=== PATIENT | male | born 1985 | race Caucasian/White ===

== ENCOUNTER 2017-09-03 22:47 | Emergency (ER) | payer SELFPAY | END 2017-09-04 00:10 | disposition home or self-care (01) | LOC: EDH 22:47 | DX: S89.91XA Unspecified injury of right lower leg, initial encounter (principal); Z72.0 Tobacco use; Z98.890 Other specified postprocedural states | CPT/HCPCS: 73562 ==

== ENCOUNTER 2022-02-13 01:25 | Emergency (ER) | payer OTHER ==
[~2022-02-13] VITALS: Ht 177.8 cm; Wt 105.7 kg
[2022-02-13 01:26] VITALS: BP 167/128
[2022-02-13] MEDS ORDERED: LIDO113G3 TP (02:35)
[2022-02-13] MEDS ORDERED: HYDR25SU38 RC (02:35)
[2022-02-13] MEDS ORDERED: DOCU100C33 PO (02:35)
== END 2022-02-13 02:52 | disposition home or self-care (01) ==
LOC: EDH 01:25
DX: K64.4 Residual hemorrhoidal skin tags (principal); K64.5 Perianal venous thrombosis; I10 Essential (primary) hypertension
CPT/HCPCS: 99282

== ENCOUNTER 2023-07-06 19:37 | Inpatient (IN) | payer OTHER ==
[~2023-07-06] VITALS: Ht 177.8 cm; Wt 100.6 kg
[~2023-07-06 19:37] MED LIST: DOCU100C33 PO; HYDR25SU38 RC; LIDO113G3 TP
[2023-07-06 20:06] LABS: BASOPHILS # (AUTO) 0.07 K/uL (0.00-0.20); BASOPHILS % (AUTO) 0.8 % (0.0-5.0); EOSINOPHILS # (AUTO) 0.26 K/uL (0.00-0.70); EOSINOPHILS % (AUTO) 2.8 % (0.0-8.0); HEMATOCRIT 51.5 % (42-54); IMMATURE GRANULOCYTE ABSOLUTE 0.03 K/uL (0-1); LYMPHOCYTES # (AUTO) 2.4 K/uL (1.0-4.8); LYMPHOCYTES % (AUTO) 25.7 % (21.0-51.0); MEAN CORPUSCULAR HEMOGLOBIN 30.8 pg (27.0-33.0); MEAN CORPUSCULAR HGB CONC 34.4 g/dL (32.0-36.0); MEAN CORPUSCULAR VOLUME 89.7 fL (79-99); MONOCYTES # (AUTO) 0.6 K/uL (0.1-1.0); MONOCYTES % (AUTO) 6.5 % (3.0-13.0); NEUTROPHILS # (AUTO) 5.9 K/uL (1.8-7.7); NEUTROPHILS % (AUTO) 63.9 % (40.0-77.0); PLATELET COUNT (AUTO) 286 K/uL (130-400); RED BLOOD CELL COUNT(AUTO) 5.74 MIL/uL (4.50-6.20); RED CELL DISTRIBUTION WIDTH 11.9 % (11.0-15.5); WHITE BLOOD COUNT (AUTO) 9.2 K/uL (4.8-10.8)
[2023-07-06 20:24] LABS: CREATININE 1.2 mg/dL (0.5-1.5); POTASSIUM 3.4 mmol/L (3.5-5.1)
[2023-07-06 20:35] LABS: ALBUMIN 3.8 g/dL (3.5-5.0); BILIRUBIN,TOTAL 0.6 mg/dL (0.2-1.0); TOTAL PROTEIN, SERUM 7.7 g/dL (6.0-8.3)
[2023-07-06] MEDS ORDERED: 0.9%NACL 1000ML 1,000 ML IV ONE (20:43)
[2023-07-06] MEDS: ERYTHROMYCIN BASE 0.5% OPHTH OINT 1 GM TUBE OU SCH (20:48)
[2023-07-06] MEDS ORDERED: 0.9%NACL 1000ML 1,000 ML IV STA (20:49)
[2023-07-06] MEDS ORDERED: HYDRALAZINE 20MG/ML VIAL IV ONE ×2 (21:00→22:00)
[2023-07-06] MEDS ORDERED: ASPIRIN 325MG TAB PO ONE (21:00)
[2023-07-06] MEDS ORDERED: POTASSIUM BICARB/CIT AC 25 MEQ TABLET.EFF ONE (21:18)
[2023-07-06 21:21] LABS: AMPHET/METH SCREEN,URINE NEGATIVE (NEGATIVE); BARBITURATE SCREEN, URINE NEGATIVE (NEGATIVE); BENZODIAZEPINES SCREEN,URINE NEGATIVE (NEGATIVE); CANNABINOID SCREEN,URINE POSITIVE (NEGATIVE); COCAINE SCREEN,URINE NEGATIVE (NEGATIVE); OPIATE SCREEN,URINE NEGATIVE (NEGATIVE); PHENCYCLIDINE SCREEN,URINE NEGATIVE (NEGATIVE)
[2023-07-06] MEDS ORDERED: POTASSIUM BICARB/CIT AC 25 MEQ TABLET.EFF PO ONE (21:30)
[2023-07-06] MEDS ORDERED: MORPHINE 4 MG SYG IV PRN (23:30)
[2023-07-06] MEDS ORDERED: CLOPIDOGREL 300MG TAB PO ONE (23:30)
[2023-07-06] MEDS ORDERED: MORPHINE 2 MG SYG IV PRN (23:30)
[2023-07-06] MEDS ORDERED: POTASSIUM CHLORIDE 20MEQ/100ML 100 ML IV PRN (23:30)
[2023-07-06] MEDS ORDERED: ACETAMINOPHEN 325 MG TAB PO PRN ×2 (23:30)
[2023-07-06] MEDS ORDERED: ONDANSETRON 4MG INJ IV PRN (23:30)
[2023-07-06] MEDS ORDERED: NITROGLYCERIN 50MG/D5W 250ML 250 BOT IV SCH (23:30)
[2023-07-06] MEDS ORDERED: MAGNESIUM 2GM PREMIX 50ML 50 ML IV PRN (23:30)
[2023-07-06 23:43] LABS: RAPID GROUP A STREP negative (NEGATIVE)
[2023-07-06 23:49] LABS: BASOPHILS % (AUTO) 0.9 % (0.0-5.0); EOSINOPHILS # (AUTO) 0.28 K/uL (0.00-0.70); EOSINOPHILS % (AUTO) 2.4 % (0.0-8.0); HEMATOCRIT 50.3 % (42-54); IMMATURE GRANULOCYTE ABSOLUTE 0.04 K/uL (0-1); LYMPHOCYTES # (AUTO) 3.3 K/uL (1.0-4.8); LYMPHOCYTES % (AUTO) 29.2 % (21.0-51.0); MEAN CORPUSCULAR HEMOGLOBIN 30.8 pg (27.0-33.0); MEAN CORPUSCULAR HGB CONC 34.2 g/dL (32.0-36.0); MONOCYTES % (AUTO) 8.4 % (3.0-13.0); NEUTROPHILS # (AUTO) 6.7 K/uL (1.8-7.7); NEUTROPHILS % (AUTO) 58.8 % (40.0-77.0); PLATELET COUNT (AUTO) 274 K/uL (130-400); RED BLOOD CELL COUNT(AUTO) 5.59 MIL/uL (4.50-6.20); RED CELL DISTRIBUTION WIDTH 11.9 % (11.0-15.5); WHITE BLOOD COUNT (AUTO) 11.4 K/uL (4.8-10.8)
[2023-07-06 23:53] LABS: COVID19 (SARS ANTIGEN RAPID) PRESUMPTIVE NEGATIVE (NEGATIVE); INFLUENZA TYPE A Negative For Type A (NEGATIVE); INFLUENZA TYPE B Negative For Type B (NEGATIVE)
[2023-07-06] MEDS: HEPARIN 25,000 UNITS/250ML D5W 250 ML IV SCH (23:58)
[2023-07-07] VITALS (63 sets, daily range): BP systolic 125–172; BP diastolic 55–115; PULSE 63–94; RESP 12–53; O2SAT 95–98
[2023-07-07 00:01] LABS: INR < 0.93 (0.85-1.15); PROTHROMBIN TIME 10.8 SEC (9.6-11.6)
[2023-07-07 00:03] LABS: PARTIAL THROMBOPLASTIN TIME 30.2 SEC (26.3-35.5)
[2023-07-07] MEDS ORDERED: HEPARIN 5,000 UNIT VIAL SQ PRN (00:30)
[2023-07-07 00:33] LABS: B-TYPE NATRIURETIC PEPTIDE 104 pg/mL (0-100)
[2023-07-07] MEDS: LACTATED RINGERS 1000ML 1,000 ML IV SCH ×2 (01:40→15:04)
[2023-07-07 03:38] LABS: BASOPHILS # (AUTO) 0.09 K/uL (0.00-0.20); BASOPHILS % (AUTO) 0.8 % (0.0-5.0); EOSINOPHILS % (AUTO) 0.9 % (0.0-8.0); HEMATOCRIT 49.1 % (42-54); IMMATURE GRANULOCYTE ABSOLUTE 0.03 K/uL (0-1); LYMPHOCYTES # (AUTO) 2.5 K/uL (1.0-4.8); LYMPHOCYTES % (AUTO) 22.3 % (21.0-51.0); MEAN CORPUSCULAR HEMOGLOBIN 30.4 pg (27.0-33.0); MEAN CORPUSCULAR HGB CONC 34.4 g/dL (32.0-36.0); MEAN CORPUSCULAR VOLUME 88.3 fL (79-99); MONOCYTES # (AUTO) 0.8 K/uL (0.1-1.0); MONOCYTES % (AUTO) 6.8 % (3.0-13.0); NEUTROPHILS # (AUTO) 7.6 K/uL (1.8-7.7); NEUTROPHILS % (AUTO) 68.9 % (40.0-77.0); PLATELET COUNT (AUTO) 279 K/uL (130-400); RED BLOOD CELL COUNT(AUTO) 5.56 MIL/uL (4.50-6.20); RED CELL DISTRIBUTION WIDTH 11.9 % (11.0-15.5)
[2023-07-07 03:50] LABS: INR 0.94 (0.85-1.15); PROTHROMBIN TIME 10.9 SEC (9.6-11.6)
[2023-07-07 03:51] LABS: PARTIAL THROMBOPLASTIN TIME 37.2 SEC (26.3-35.5)
[2023-07-07 03:54] LABS: PHOSPHORUS 2.4 mg/dL (2.5-4.9); POTASSIUM 3.4 mmol/L (3.5-5.1)
[2023-07-07] MEDS: HEPARIN 25,000 UNITS/250ML D5W 250 ML IV SCH ×3 (06:38→18:51)
[2023-07-07 06:58] LABS: INR 0.94 (0.85-1.15)
[2023-07-07 06:59] LABS: PARTIAL THROMBOPLASTIN TIME 51.9 SEC (26.3-35.5)
[2023-07-07] MEDS: ASPIRIN 81MG CHEW TAB PO SCH (09:13)
[2023-07-07] MEDS: CLOPIDOGREL 75MG TAB PO SCH (09:14)
[2023-07-07] MEDS: FAMOTIDINE 20MG TAB PO SCH ×2 (09:14→20:31)
[2023-07-07] MEDS ORDERED: LISINOPRIL 20 MG TABLET PO SCH (10:30)
[2023-07-07] MEDS ORDERED: HYDRALAZINE 20MG/ML VIAL IM ONE (10:30)
[2023-07-07] MEDS ORDERED: HYDRALAZINE 20MG/ML VIAL IV ONE (11:00)
[2023-07-07 12:18] LABS: INR 0.95 (0.85-1.15); PROTHROMBIN TIME 11.1 SEC (9.6-11.6)
[2023-07-07 12:19] LABS: PARTIAL THROMBOPLASTIN TIME 53.5 SEC (26.3-35.5)
[2023-07-07] MEDS ORDERED: LISINOPRIL 20 MG TABLET PO ONE (12:30)
[2023-07-07] MEDS ORDERED: POTASSIUM CHLORIDE 20MEQ/100ML 100 ML IV PRN (15:00)
[2023-07-07] MEDS ORDERED: KCL 20 MEQ ERTAB PO PRN (15:00)
[2023-07-07] MEDS ORDERED: POTASSIUM CHLORIDE 10% ELIXIR 20 MEQ/15 ML UDCUP PO PRN (15:00)
[2023-07-07] MEDS: POTASSIUM CHLORIDE 10% ELIXIR 20 MEQ/15 ML UDCUP PO PRN ×2 (15:04→16:55)
[2023-07-07] MEDS: ERYTHROMYCIN BASE 0.5% OPHTH OINT 1 GM TUBE OU SCH (21:39)
[2023-07-08 00:05] VITALS: BP 134/97; PULSE 74; RESP 20
[2023-07-08] MEDS: HEPARIN 25,000 UNITS/250ML D5W 250 ML IV SCH ×2 (00:30→06:03)
[2023-07-08 04:00] VITALS: BP 126/76; PULSE 61; RESP 20
[2023-07-08] MEDS: LACTATED RINGERS 1000ML 1,000 ML IV SCH (04:10)
[2023-07-08 07:12] VITALS: BP 142/97; PULSE 64; RESP 18
[2023-07-08 07:17] LABS: BASOPHILS # (AUTO) 0.09 K/uL (0.00-0.20); EOSINOPHILS # (AUTO) 0.17 K/uL (0.00-0.70); EOSINOPHILS % (AUTO) 1.9 % (0.0-8.0); HEMATOCRIT 52.1 % (42-54); IMMATURE GRANULOCYTE ABSOLUTE 0.03 K/uL (0-1); LYMPHOCYTES # (AUTO) 2.9 K/uL (1.0-4.8); MEAN CORPUSCULAR HEMOGLOBIN 30.8 pg (27.0-33.0); MEAN CORPUSCULAR HGB CONC 33.4 g/dL (32.0-36.0); MEAN CORPUSCULAR VOLUME 92.2 fL (79-99); MONOCYTES # (AUTO) 0.8 K/uL (0.1-1.0); MONOCYTES % (AUTO) 9.3 % (3.0-13.0); NEUTROPHILS % (AUTO) 55.5 % (40.0-77.0); PLATELET COUNT (AUTO) 265 K/uL (130-400); RED BLOOD CELL COUNT(AUTO) 5.65 MIL/uL (4.50-6.20); RED CELL DISTRIBUTION WIDTH 12.1 % (11.0-15.5)
[2023-07-08 07:39] LABS: ALBUMIN 3.3 g/dL (3.5-5.0); BILIRUBIN,TOTAL 1.2 mg/dL (0.2-1.0); TOTAL PROTEIN, SERUM 6.8 g/dL (6.0-8.3)
[2023-07-08 08:00] VITALS: O2SAT 97
[2023-07-08] MEDS: CLOPIDOGREL 75MG TAB PO SCH (08:57)
[2023-07-08] MEDS: FAMOTIDINE 20MG TAB PO SCH (08:57)
[2023-07-08] MEDS: ASPIRIN 81MG CHEW TAB PO SCH (08:58)
[2023-07-08] MEDS ORDERED: ENOXAPARIN SODIUM 40 MG/0.4 ML SYRINGE SQ SCH (09:00)
[2023-07-08] MEDS ORDERED: LISINOPRIL 40 MG TABLET PO SCH (09:00)
[2023-07-08] MEDS ORDERED: REGADENOSON 0.4 MG/5 ML PF SYG IVP SCH (11:00)
[2023-07-08 13:45] LABS: INR 0.98 (0.85-1.15); PROTHROMBIN TIME 11.4 SEC (9.6-11.6)
[2023-07-08 13:46] LABS: PARTIAL THROMBOPLASTIN TIME 58.8 SEC (26.3-35.5)
[2023-07-08 15:46] VITALS: BP 141/79; PULSE 72; RESP 18
[2023-07-08] MEDS ORDERED: ASPI-1197 PO ×2 (17:50→17:57)
[2023-07-08] MEDS ORDERED: LISI40TA9 PO (17:57)
[2023-07-08] MEDS ORDERED: CLOP-31 PO (17:58)
== END 2023-07-08 18:40 | disposition home or self-care (01) | DRG 305 ==
LOC: EDH 19:37 → EDHIP 19:38 → 2CH 07-07 02:47 → 2DH 07-07 17:33
PROVIDERS: ADMIT Internal Medicine; ATTEND Internal Medicine
PROC: 4A02XM4 Measurement of Cardiac Total Activity, External Approach (ICD-10-PCS; principal; 2023-07-08)
PROC: 3E073KZ Introduction of Other Diagnostic Substance into Coronary Artery, Percutaneous Approach (ICD-10-PCS; 2023-07-08)
DX: I16.1 Hypertensive emergency (principal); E87.6 Hypokalemia; I10 Essential (primary) hypertension; I44.0 Atrioventricular block, first degree; Z20.822 Contact with and (suspected) exposure to COVID-19; Z51.5 Encounter for palliative care; Z59.7 Insufficient social insurance and welfare support; Z75.3 Unavailability and inaccessibility of health-care facilities; Z79.02 Long term (current) use of antithrombotics/antiplatelets; Z79.82 Long term (current) use of aspirin; Z79.899 Other long term (current) drug therapy; Z91.199 Patient's noncompliance with other medical treatment and regimen due to unspecified reason
CPT/HCPCS: 36415; 70450; 71045; 78452; 80048; 80053; 80305; 82550; 83735; 83874; 83880; 84100; 84484; 85025; 85610; 85730; 86850; 86900; 86901; 87426; 87804; 87880; 93005; 93017; 93306; 96374; A9500; G0378; J0360; J1644; J1650; J2405; J2785; J3480; J7030

== ENCOUNTER 2023-09-16 15:44 | Inpatient (IN) | payer OTHER ==
[~2023-09-16] VITALS: Ht 177.8 cm; Wt 102.6 kg
[~2023-09-16 15:44] MED LIST changes: +ASPI-1197 PO; +CLOP-31 PO; -DOCU100C33 PO; -HYDR25SU38 RC; -LIDO113G3 TP; +LISI40TA9 PO
[2023-09-16 16:59] LABS: APPEARANCE,URINE CLEAR (CLEAR); BILIRUBIN,URINE NEGATIVE (NEGATIVE); COLOR,URINE LIGHT-YELLOW (YELLOW); GLUCOSE, URINE (UA) NEGATIVE (NEGATIVE); KETONES,URINE NEGATIVE (NEGATIVE); LEUKOCYTE ESTERASE ,URINE NEGATIVE Leu/uL (NEGATIVE); NITRATE,URINE NEGATIVE (NEGATIVE); PH,URINE 5.5 (5.0-8.0); PROTEIN,URINE NEGATIVE (NEGATIVE); UROBILINOGEN,URINE 0.2 mg/dL (0.2-1.0)
[2023-09-16 16:59] LABS: POTASSIUM 3.9 mmol/L (3.5-5.1)
[2023-09-16 17:01] LABS: INR 0.94 (0.85-1.15); PROTHROMBIN TIME 10.9 SEC (9.6-11.6)
[2023-09-16 17:02] LABS: PARTIAL THROMBOPLASTIN TIME 23.5 SEC (26.3-35.5)
[2023-09-16 17:06] LABS: ADD UA MICROSCOPIC YES
[2023-09-16 17:06] LABS: ALBUMIN 3.4 g/dL (3.5-5.0); BILIRUBIN,TOTAL 0.2 mg/dL (0.2-1.0); TOTAL PROTEIN, SERUM 6.3 g/dL (6.0-8.3)
[2023-09-16 17:08] LABS: MUCUS,URINE RARE LPF (None Seen); RBC,URINE 0-1 /HPF (0-1); WBC,URINE 0-1 /HPF (0-1)
[2023-09-16 17:17] LABS: BASOPHILS # (AUTO) 0.07 K/uL (0.00-0.20); BASOPHILS % (AUTO) 0.9 % (0.0-5.0); EOSINOPHILS % (AUTO) 1.3 % (0.0-8.0); HEMATOCRIT 28.8 % (42-54); IMMATURE GRANULOCYTE ABSOLUTE 0.03 K/uL (0-1); LYMPHOCYTES # (AUTO) 2.5 K/uL (1.0-4.8); LYMPHOCYTES % (AUTO) 30.9 % (21.0-51.0); MEAN CORPUSCULAR HEMOGLOBIN 31.3 pg (27.0-33.0); MONOCYTES # (AUTO) 0.6 K/uL (0.1-1.0); NEUTROPHILS # (AUTO) 4.7 K/uL (1.8-7.7); NEUTROPHILS % (AUTO) 59.5 % (40.0-77.0); PLATELET COUNT (AUTO) 249 K/uL (130-400); RED BLOOD CELL COUNT(AUTO) 3.13 MIL/uL (4.50-6.20); RED CELL DISTRIBUTION WIDTH 12.2 % (11.0-15.5)
[2023-09-16] MEDS ORDERED: PANTOPRAZOLE 40 MG/VIAL IVP SCH (19:00)
[2023-09-16] MEDS ORDERED: OCTREOTIDE ACETATE 1,250 MCG in 0.9% NACL 250ML 250 ML IV SCH (20:30)
[2023-09-16] MEDS ORDERED: MORPHINE 4 MG SYG IV PRN (20:30)
[2023-09-16] MEDS ORDERED: ACETAMINOPHEN 325 MG TAB PO PRN ×2 (20:30)
[2023-09-16] MEDS ORDERED: OCTREOTIDE ACETATE 100 MCG/ML AMP IV SCH (20:30)
[2023-09-16] MEDS ORDERED: ONDANSETRON 4MG INJ IV PRN (20:30)
[2023-09-16] MEDS ORDERED: MORPHINE 2 MG SYG IV PRN (20:30)
[2023-09-16] MEDS: PANTOPRAZOLE 40 MG/VIAL IVP SCH (21:00)
[2023-09-16] MEDS: LACTATED RINGERS 1000ML 1,000 ML IV SCH (21:45)
[2023-09-16 21:48] LABS: HEMATOCRIT 26.9 % (42-54)
[2023-09-16 22:35] VITALS: BP 140/82; PULSE 78; RESP 20
[2023-09-17 03:54] VITALS: BP 147/78; PULSE 72; RESP 18
[2023-09-17 04:14] LABS: BASOPHILS # (AUTO) 0.08 K/uL (0.00-0.20); EOSINOPHILS # (AUTO) 0.24 K/uL (0.00-0.70); EOSINOPHILS % (AUTO) 2.9 % (0.0-8.0); HEMATOCRIT 28.4 % (42-54); IMMATURE GRANULOCYTE ABSOLUTE 0.02 K/uL (0-1); LYMPHOCYTES # (AUTO) 2.9 K/uL (1.0-4.8); MEAN CORPUSCULAR HEMOGLOBIN 31.2 pg (27.0-33.0); MEAN CORPUSCULAR HGB CONC 33.8 g/dL (32.0-36.0); MEAN CORPUSCULAR VOLUME 92.2 fL (79-99); MONOCYTES # (AUTO) 0.7 K/uL (0.1-1.0); MONOCYTES % (AUTO) 8.2 % (3.0-13.0); NEUTROPHILS # (AUTO) 4.4 K/uL (1.8-7.7); NEUTROPHILS % (AUTO) 52.7 % (40.0-77.0); PLATELET COUNT (AUTO) 260 K/uL (130-400); RED BLOOD CELL COUNT(AUTO) 3.08 MIL/uL (4.50-6.20); RED CELL DISTRIBUTION WIDTH 12.2 % (11.0-15.5); WHITE BLOOD COUNT (AUTO) 8.4 K/uL (4.8-10.8)
[2023-09-17 04:22] LABS: INR 0.96 (0.85-1.15); PROTHROMBIN TIME 11.2 SEC (9.6-11.6)
[2023-09-17 04:24] LABS: PARTIAL THROMBOPLASTIN TIME 24.7 SEC (26.3-35.5)
[2023-09-17 04:28] LABS: MAGNESIUM 1.8 mg/dL (1.80-2.40); PHOSPHORUS 3.2 mg/dL (2.5-4.9); POTASSIUM 4.1 mmol/L (3.5-5.1)
[2023-09-17 04:35] LABS: % IRON SATURATION 34.4 % (30-44)
[2023-09-17 07:35] VITALS: O2SAT 96
[2023-09-17 08:00] VITALS: BP 136/80; PULSE 70; RESP 17
[2023-09-17] MEDS: PANTOPRAZOLE 40 MG/VIAL IVP SCH (08:48)
[2023-09-17] MEDS: LACTATED RINGERS 1000ML 1,000 ML IV SCH (08:50)
[2023-09-17] MEDS ORDERED: LISINOPRIL 10 MG TABLET PO SCH (09:00)
[2023-09-17 12:00] VITALS: BP 147/91; PULSE 71; RESP 18
[2023-09-17] MEDS ORDERED: LORAZEPAM 1 MG TABLET PO PRN (12:30)
[2023-09-17] MEDS ORDERED: CHLORDIAZEPOXIDE HCL 25 MG CAP PO PRN (12:30)
== END 2023-09-17 14:22 | disposition left against medical advice (07) | DRG 379 ==
LOC: EDH 15:44 → EDHIP 15:45 → 4AH 22:25
PROVIDERS: ADMIT Internal Medicine; ATTEND Internal Medicine
DX: K92.1 Melena (principal); D64.9 Anemia, unspecified; F10.20 Alcohol dependence, uncomplicated; F12.90 Cannabis use, unspecified, uncomplicated; I10 Essential (primary) hypertension; K59.00 Constipation, unspecified; Z53.29 Procedure and treatment not carried out because of patient's decision for other reasons; Z91.199 Patient's noncompliance with other medical treatment and regimen due to unspecified reason
CPT/HCPCS: 36415; 71045; 76700; 80048; 80053; 81001; 82270; 83540; 83550; 83615; 83735; 84100; 85014; 85018; 85025; 85045; 85610; 85730; 86850; 86900; 86901; 93005; C9113; G0378; J2354; J7050; J7120